=== PATIENT | male | born 1965 | race Caucasian/White ===

== ENCOUNTER 2021-12-08 22:31 | Emergency (ER) | payer MEDICARE ==
[~2021-12-08] VITALS: Ht 170.2 cm; Wt 107.0 kg
[2021-12-08] MEDS ORDERED: ONDANSETRON HCL 4MG/2ML INJ IV STA (23:25)
[2021-12-08] MEDS ORDERED: MORPHINE SULFATE 4 MG/ML CPJ (NOT FOR IM USE) IV STA (23:25)
[2021-12-08 23:54] LABS: BASOPHILS % 0.5 % (0.0-2.0); EOSINOPHILS % 0.5 % (0.0-5.0); HEMATOCRIT. 33.8 % (42.0-52.0); HEMOGLOBIN. 11.3 g/dL (14.0-18.0); LYMPHOCYTES % 21.8 % (20.0-50.0); MEAN CORPUSCULAR HEMOGLOBIN 29.9 pg (28.0-32.0); MEAN CORPUSCULAR VOLUME 89.7 fL (80.0-94.0); MEAN PLATELET VOLUME 6.4 fl (7.4-10.4); MONOCYTES % 11.4 % (2.0-8.0); NEUTROPHILS % 65.8 % (40.0-76.0); PLATELET 550 x1000/uL (130-400); RED BLOOD CELL COUNT 3.77 mill/uL (4.7-6.1); RED CELL DISTRIBUTION WIDTH 15.9 % (11.6-14.6)
[2021-12-09 00:16] LABS: CHLORIDE 106 mEq/L (98-107)
[2021-12-09] MEDS ORDERED: MORPHINE SULFATE 4 MG/ML CPJ (NOT FOR IM USE) IV ONE (02:15)
[2021-12-09 04:41] VITALS: BP 102/63
== END 2021-12-09 04:43 | disposition home or self-care (01) ==
LOC: ER 22:31
DX: M79.605 Pain in left leg (principal); M54.50 Low back pain, unspecified; E11.9 Type 2 diabetes mellitus without complications; I10 Essential (primary) hypertension
CPT/HCPCS: 36415; 72100; 72170; 73552; 73560; 73590; 80048; 82962; 85025; 93971; 96374; 96375; 96376; 99285; J2270; J2405